=== PATIENT | male | born 1980 | race Caucasian/White ===

== ENCOUNTER 2016-06-30 19:35 | Inpatient (IN) ==
[2016-06-30] MEDS ORDERED: TORADOL IM ONE (20:46)
--- NOTE | 2016-06-30 21:29 | PROVIDER DOCUMENTATION ---
HPI-Musculoskeletal Pain/Inj - GENERAL Source: patient - HX OF PRESENT ILLNESS-MUSKULOSKELTAL Quality of Pain: reports: aching, dull Severity in ED: moderate Onset/Duration: gradual, this morning Timing: still present, constant, getting worse Modifying Factors: improves with: nothing Any recent injury?: No Locality of Occurance: Home Similar Symptoms Previously?: Yes Recently seen or treated by another doctor?: No <Jonny Rothman - Last Filed: 06/30/16 23:13> <Roselia Carroll - Last Filed: 06/30/16 23:53> - GENERAL Chief Complaint: Extremity Pain Stated Complaint: POSS BLOOD CLOT Time Seen by Provider: 06/30/16 20:29 - HX OF PRESENT ILLNESS-MUSKULOSKELTAL Nature of Presenting Problem: 36 year old WM presents with c/o right lower extremity pain/swelling and shortness of breath. pain started this AM followed by swelling, getting worse. pt reports the dull pain starts at his Achilles tendon and radiates up onto the popliteal region. exacerbated by movement/palpation. has not taken any OTC meds for pain relief. pt reports history of this pain with previous DVT diagnosis. pt has a history of DVT in 2004, 2010. denies trauma, injury, fever, chills, NVD (Jonny Rothman) Review of Systems - Adult - REVIEW OF SYSTEMS - ADULT Constitutional: reports: no symptoms reported. denies: chills, fever, fatique Eyes: reports: no symptoms reported. denies: discharge, blurred vision, double vision Ears, Nose, Mouth & Throat: reports: no symptoms reported. denies: ear discharge, ear pain, nose pain, loose teeth, throat pain, throat swelling Cardiovascular: reports: no symptoms reported. denies: chest pain, palpitations , syncope Respiratory: reports: no symptoms reported. denies: chronic cough, cough, shortness of breath, wheezing Gastrointestinal: reports: no symptoms reported. denies: abdominal pain, nausea , vomiting Genitourinary: reports: no symptoms reported. denies: dysuria, hematuria, urgency Musculoskeletal: reports: see HPI, bone pain, joint pain, joint swelling. denies: back pain, frequent leg cramps, muscle aches, muscle weakness Integumentary: reports: no symptoms reported. denies: hives, itching, rash, skin sores/ulcer Neurological: reports: no symptoms reported. denies: ataxia, dizziness/vertigo , numbness, paresthesia Psychiatric: reports: no symptoms reported Endocrine: reports: no symptoms reported Hematologic/Lymphatic: reports: no symptoms reported Allergic/Immunologic: reports: no symptoms reported All Other Systems: Reviewed and Negative <Jonny Rothman - Last Filed: 06/30/16 23:13> Past History - Adult - PAST MEDICAL HISTORY-ADULT Review of Records: reports: Old Records Reviewed, Nursing Assessment Review, Medications Reviewed, Social history reviewed & non-contributory. Major Childhood Illnesses: reports: denies history Cardiovascular: reports: denies history Respiratory: reports: denies history Gastrointestinal: reports: denies history Obstetrical/Gynecological: reports: denies history Genitourinary: reports: denies history Musculoskeletal: reports: denies history, other (DVT in 2004, 2010) Neurological: reports: denies history Endocrine/Immune: reports: denies history Other Conditions: reports: denies history - PRIOR SURGERIES/PROCEDURES Surgical/Procedure History: reports: hernia repair, other (knee) - IMMUNIZATION STATUS Childhood Immunizations: See Nurse Assessment Flu Vaccine: See Nurse Assessment - FAMILY HISTORY Family History: reviewed, not pertinent - SOCIAL HISTORY Smoking: cigarettes Provider spent 3-5 mins advising pt. on dangers of tobacco.: Discussed manners to quit use, and f/u contacts for add'l counseling. Substance Use: none/never Alcohol Use Frequency: never <Jonny Rothman - Last Filed: 06/30/16 23:13> Physical Exam-Injury Related - Physical Exam-Injury Related Initial Vital Signs Reviewed: Yes General Appearance: appears well, alert, mild distress, moderate distress. negative: no apparent distress, severe distress Eyes: pink conjunctivae Head, Ears, Nose, Mouth & Throat: normocephalic/atraumatic, moist mucous membranes, normal ENT inspection Neck: non-tender, full range of motion, supple, normal inspection Respiratory: chest non-tender, lungs clear, normal breath sounds, no pleuratic chest pain, no respiratory distress, no accessory muscle use <Jonny Rothman - Last Filed: 06/30/16 23:13> Progress - CT/MRI 1 CT Study: Angiogram, Thorax Impression: Abnormal (multiple Pe's per Dr. Perez who took call from Dr. Lopez. ) - CONSULTS/PCP/HOSPITALIST Notification #1 *Consult/PCP/Hospitalist*: Dr. Marroquin Time Discussed: 23:16 Consult Disposition: Will see in ED, Admit <Jonny Rothman - Last Filed: 06/30/16 23:13> - EKG 1 Time of EKG reading by physician:: 22:33 EKG Read and Signed by:: Michael Perez EKG Interpretation (*Must complete 3 of following elements*): Normal Rate: 73 Rhythm: NSR with sinus arrhythmia Comments: Normal ECG <Roselia Carroll - Last Filed: 06/30/16 23:53> - PLAN OF CARE/RESULTS Progress/Plan/Lab Results: Laboratory Tests 06/30/16 06/30/16 06/30/16 20:35 20:35 20:35 WBC 13.13 H RBC 5.30 Hgb 16.0 Hct 45.9 MCV 86.6 MCH 30.2 MCHC 34.9 RDW Std Deviation 12.7 Plt Count 219 MPV 11.1 H Immature Gran % (Auto) 0.3 Neut % (Auto) 63.6 Lymph % (Auto) 26.7 Mcminn % (Auto) 6.9 Eos % (Auto) 2.1 Baso % (Auto) 0.4 Immature Gran # (Auto) 0.04 Neut # (Auto) 8.34 H Lymph # (Auto) 3.51 H Mcminn # (Auto) 0.91 H Eos # (Auto) 0.28 Baso # (Auto) 0.05 PT INR APTT (Factor Assay) D-Dimer 3.84 H Sodium 137 Potassium 3.9 Chloride 100 Carbon Dioxide 26 Anion Gap 12 BUN 8 Creatinine 0.9 Estimated GFR/1.73 m2 > 60 BUN/Creatinine Ratio 9 Glucose 105 H Calculated Osmolality 273 Calcium 9.7 Total Bilirubin 0.40 AST 19 ALT 30 Alkaline Phosphatase 116 Total Protein 7.7 Albumin 4.8 Globulin 3.0 Albumin/Globulin Ratio 2.0 06/30/16 20:35 WBC RBC Hgb Hct MCV MCH MCHC RDW Std Deviation Plt Count MPV Immature Gran % (Auto) Neut % (Auto) Lymph % (Auto) Mcminn % (Auto) Eos % (Auto) Baso % (Auto) Immature Gran # (Auto) Neut # (Auto) Lymph # (Auto) Mcminn # (Auto) Eos # (Auto) Baso # (Auto) PT 13.6 INR 1.01 APTT (Factor Assay) 31.3 D-Dimer Sodium Potassium Chloride Carbon Dioxide Anion Gap BUN Creatinine Estimated GFR/1.73 m2 BUN/Creatinine Ratio Glucose Calculated Osmolality Calcium Total Bilirubin AST ALT Alkaline Phosphatase Total Protein Albumin Globulin Albumin/Globulin Ratio Orders Category Date Time Status Saline Loc NOW Care 06/30/16 21:49 Active CTA [ANGIOGRAM/PULMONARY ARTERIES] [CT] Stat Exams 06/30/16 21:50 Taken CBC WITH ELECTRONIC DIFF [HEME] Stat Lab 06/30/16 20:35 Completed COMPREHENSIVE METABOLIC PANEL [CHEM] Stat Lab 06/30/16 20:35 Completed Ddimer [D-DIMER PL] [COAG] Stat Lab 06/30/16 20:35 Completed [address]IME WITH INR PL [COAG] Stat Lab 06/30/16 20:[address] [COAG] Stat Lab 06/30/16 20:35 Completed Ketorolac [Toradol] Med 06/30/16 20:46 Discontinued 60 mg IM NOW ONE EKG [EKG] Stat Ther 06/30/16 21:49 Draft Vital Signs - 24 hr 06/30/16 06/30/16 20:02 23:14 Temperature 98 F 98.8 F Pulse Rate 102 H 79 Respiratory 18 20 Rate Blood Pressure 145/80 107/69 O2 Sat by Pulse 99 96 Oximetry Reviewed radiology, labs, H&P with Dr. Perez, agrees with plan of care and admission. (Jonny Rothman) Departure - Departure Time of Disposition Order: 23:14 Certified Medical Emergency: Emergent <Jonny Rothman - Last Filed: 06/30/16 23:13> <Roselia Carroll - Last Filed: 06/30/16 23:53> - Departure DIAGNOSIS: Pulmonary embolus Qualifiers: Pulmonary embolism type: other Chronicity: acute Acute cor pulmonale presence: without acute cor pulmonale Qualified Code(s): I26.99 - Other pulmonary embolism without acute cor pulmonale Disposition: ADMITTED INPATIENT 09 Condition: Stable Referrals: None,PCP [Primary Care Provider] - Attestation - Physician/ SAUL Attestation Patient care was provided by Advanced Practice Provider:: Yes Advanced Practice Provider:: Jonny Rothman Advanced Practice Provider documentation review:: The Mid-level provider documentation, treatment plan and medical decision making was reviewed by the physician who agrees with all treatment and medical decision making by the MLP. <Jonny Rothman - Last Filed: 06/30/16 23:13> Physician Attestation
[2016-06-30 22:03] LABS: MANUAL DIFF NEEDED? NO
[2016-06-30 22:09] LABS: BASO% 0.4 % (0.0-0.8); EOS# 0.28 X1000 (0.0-0.7); EOS% 2.1 % (0.0-10.0); HEMATOCRIT 45.9 % (42.0-52.0); IMM GRAN# 0.04 X1000 (0.0-0.04); IMM GRAN% 0.3 % (0.0-0.5); LYMPH# 3.51 X1000 (1.2-3.4); LYMPH% 26.7 % (20.5-51.1); MCH 30.2 PG (27-31); MCHC 34.9 g/dL (33-37); MCV 86.6 FL (81-99); MONO# 0.91 X1000 (0.11-0.59); MONO% 6.9 % (1.7-9.3); MPV 11.1 FL (7.4-10.4); NEUT% 63.6 % (42.2-75.2); PLT 219 X1000 (130-400)
[2016-06-30 22:26] LABS: INR 1.01 (0.86-1.15); PROTIME 13.6 Seconds (12.1-15.5)
[2016-06-30 22:27] LABS: PTT PL 31.3 Seconds (22.6-43.9)
[2016-06-30 22:31] LABS: AGAP 12; ALBUMIN 4.8 g/dL (3.5-5.0); ALKALINE PHOSPHATASE 116 U/L (32-122); BUN 8 mg/dL (8-22); CALCIUM 9.7 mg/dL (8.8-10.2); CHLORIDE 100 mmol/L (98-107); COSMO 273; GOT 19 U/L (10-34); GPT 30 U/L (10-44); POTASSIUM 3.9 mmol/L (3.5-5.1); SODIUM 137 mmol/L (136-145); TCO2 26 mmol/L (25-35); TOTAL PROTEIN 7.7 g/dL (6.3-8.3)
--- NOTE | 2016-06-30 22:40 | EKG Report ---
Test Performed on : 06/30/2016 10:33:52 PM Test Reason : shortness of breath Blood Pressure : / mmHG Vent. Rate : 073 BPM Atrial Rate : 073 BPM P-R Int : 146 ms QRS Dur : 078 ms QT Int : 386 ms P-R-T Axes : 038 006 037 degrees QTc Int : 425 ms Normal sinus rhythm. with sinus arrhythmia. Normal ECG When compared with ECG of 13-MAY-2011 20:31, No significant change was found Unconfirmed Result
[2016-06-30] MEDS ORDERED: LOVENOX SUBQ ONE (23:19)
[2016-07-01] MEDS ORDERED: FLUZONE QUAD 2016-2017 SYRINGE IM ONE (00:32)
[2016-07-01] MEDS ORDERED: NICODERM PATCH TD PRN (00:45)
[2016-07-01] MEDS ORDERED: NORCO-7.5 PO PRN (00:45)
[2016-07-01] MEDS ORDERED: ZOFRAN IV PRN (00:45)
[2016-07-01] MEDS ORDERED: TYLENOL PO PRN (00:45)
--- NOTE | 2016-07-01 05:19 | HISTORY AND PHYSICAL ---
CHIEF COMPLAINT: Really right lower extremity swelling but he has had some chest pain and shortness of breath as well. HISTORY OF PRESENT ILLNESS: Briefly, this is a 36-year-old male who has had 2 previous evidence of DVT and PE. He came in for evaluation today of his right lower extremity that has been going on for several days. He reports 1 clot in 2004. He had another episode he says about 5 or 6 years ago, that would be around 2011. The patient had pain and swelling in his right lower extremity and he was admitted for treatment. Workup in the ER revealed multiple PEs bilaterally and he was admitted for treatment. The patient denies any significant history previously. PAST SURGICAL HISTORY: Denies. PAST MEDICAL HISTORY: Again, DVT, PE. FAMILY HISTORY: Negative for DVT, PE. His father is but of an MVA. SOCIAL HISTORY: He does smoke about a pack a day. He has done that for over 10 years. No ethanol. No drugs. REVIEW OF SYSTEMS: Otherwise negative of a 10 point review of systems. LABORATORY DATA: Really unremarkable. Again, preliminary report on CTA shows bilateral PEs. PHYSICAL EXAMINATION: VITAL SIGNS: Blood pressure 107/69, heart rate is 79, respiratory rate 20, temperature 98.8 degrees. GENERAL: A well-developed male, in no acute distress. HEAD EXAM: Normocephalic, atraumatic. EYES: Pupils equal, round, reactive to light. Extraocular movements were intact. EARS/NOSE/THROAT: He had moist mucous membranes. NECK: Supple. CARDIOVASCULAR: Regular rate and rhythm. No murmurs, gallops, or rubs. PULMONARY: Bilateral breath sounds clear to auscultation. GI: Soft, nontender, nondistended. Bowel sounds are positive. EXTREMITIES: No clubbing or cyanosis. LYMPHATICS: No peripheral edema. He had nonpitting edema of his right lower extremity with some petechiae and erythema and tenderness. Positive Homans sign. MUSCULOSKELETAL: Was 5/5 in all 4 extremities. NEUROLOGIC: Nonfocal. Cranial nerves 2-12 were grossly intact. ASSESSMENT: A 36-year-old, white male with history of deep venous thrombosis x2 episodes and now recurrent pulmonary embolism and likely a right lower extremity deep venous thrombosis. 1. Pulmonary embolism. We will continue anticoagulation. He has been started on Lovenox. We will continue to follow very closely. He will, at this point I think, need lifetime anticoagulation. I have ordered the anti-hypercoagulable workup, a thrombophilia workup but regardless, if it is negative, this many episodes in a row, he is just going to have to have that set up. 2. Right lower extremity swelling, likely deep venous thrombosis. We will treat as described previously.
[2016-07-01] MEDS: PRILOSEC PO SCH (06:01)
[2016-07-01 06:54] LABS: HEMATOCRIT 42.1 % (42.0-52.0); HEMOGLOBIN 14.6 g/dL (14.0-18.0); MCHC 34.7 g/dL (33-37); MCV 86.6 FL (81-99); MPV 10.9 FL (7.4-10.4); RBC 4.86 XMIL (4.7-6.1)
[2016-07-01 07:08] LABS: AGAP 10; BUN 11 mg/dL (8-22); CALCIUM 9.1 mg/dL (8.8-10.2); CHLORIDE 102 mmol/L (98-107); COSMO 270; POTASSIUM 3.8 mmol/L (3.5-5.1); SODIUM 135 mmol/L (136-145); TCO2 23 mmol/L (25-35)
--- NOTE | 2016-07-01 08:21 | Diag Imaging Result Document ---
PROCEDURE NAME: ANGIOGRAM/PULMONARY ARTERIES - 06/30/2016 CT PULMONARY ANGIOGRAM WITH INTRAVENOUS CONTRAST: A CT dose reduction protocol was used. COMPARISON: None. FINDINGS: Axial CT images of the chest were obtained after administering intravenous contrast. Coronal MIP images were generated. There are numerous bilateral acute appearing pulmonary emboli, mostly on the right. The lungs are clear. Heart size is normal. Upper abdominal images are unremarkable. IMPRESSION: Numerous acute bilateral pulmonary emboli. [facility]
--- NOTE | 2016-07-01 09:35 | PROGRESS NOTE ---
DATE: 07/01/2016 SUBJECTIVE: Patient without new complaints. OBJECTIVE: Vital Signs: Temp 97, pulse 78, respiratory 18, BP 117/63, satting 100% on room air. General: Patient is well developed, well nourished. Currently in no real respiratory distress. He is awake, alert. Neck: Supple. CV: Regular rate. Chest: Relatively clear. Abdomen: Soft. Extremities: Moves all extremities. Neurologic: No changes. ASSESSMENT: 1. Numerous acute bilateral pulmonary emboli. 2. Right lower extremity swelling; ultrasound still pending. PLAN: Patient unfortunately has no insurance, therefore we will start him on Coumadin. We will ask geriatric social worker for assistance as there may be a [employer] assistance program that he could qualify for. We will continue to follow. If he does not qualify for any assistance, then he will be here until his INR is greater than 2.
[2016-07-01] MEDS: NORCO-7.5 PO PRN ×3 (10:04→20:47)
[2016-07-01] MEDS: LOVENOX SUBQ SCH ×2 (10:56→23:30)
[2016-07-01] MEDS: COUMADIN PO SCH (20:47)
[2016-07-02] MEDS: NORCO-7.5 PO PRN ×5 (04:39→21:29)
[2016-07-02] MEDS: PRILOSEC PO SCH (06:19)
--- NOTE | 2016-07-02 08:55 | PROGRESS NOTE ---
DATE: 07/02/2016 SUBJECTIVE: Patient is feeling better. He denies any current chest pain or palpitations. Does state he is still short of breath at times but denies any fevers chills. OBJECTIVE: Vital Signs: Reviewed. Temperature 98 degrees, pulse 84, respiratory 18, BP 117/64, saturating 98% on room air. General: Patient is well developed, well nourished. Currently in no real respiratory distress. He is awake, alert, oriented. Neck: Supple. CV: Regular rate. Chest: Relatively clear. Abdomen: Soft. Extremities: Moves all extremities. Neurologic: No changes. Skin: Warm and dry. No rashes. ASSESSMENT: 1. Bilateral pulmonary emboli in a patient with a known history of multiple emboli as well as deep vein thromboses in the past. 2. Right lower extremity swelling. I do not have a final dictated copy of his ultrasound. PLAN: Discussed with patient that he needs to be on anticoagulation likely for life. His homocystine is elevated which certainly could increase his risk of clotting, as would he is smoking. Given his previous multiple clotting history, patient certainly will need to be on anticoagulation. We will continue him on Coumadin. Continue to follow his INR. We have filled out assistance papers for Stacy which certainly would be in his best interest as he does not have insurance and would have difficulty getting his INRs checked. We will continue to follow.
[2016-07-02] MEDS: NICODERM PATCH TD SCH (09:07)
[2016-07-02] MEDS: LOVENOX SUBQ SCH (10:32)
[2016-07-02] MEDS ORDERED: RESTORIL PO PRN (17:30)
[2016-07-02] MEDS: COUMADIN PO SCH (21:22)
[2016-07-03] MEDS: LOVENOX SUBQ SCH ×2 (00:28→10:37)
[2016-07-03] MEDS: NORCO-7.5 PO PRN ×4 (04:43→18:18)
[2016-07-03] MEDS: PRILOSEC PO SCH (06:43)
--- NOTE | 2016-07-03 07:12 | Extremity Venous Study ---
PROCEDURE NAME: Venous U/S Right Leg - 07/01/2016 UNILATERAL RIGHT LOWER EXTREMITY VENOUS DOPPLER ULTRASOUND: COMPARISON: None. FINDINGS: There is extensive deep venous thrombosis, in the mid-distal superficial femoral vein, popliteal vein, posterior tibial and peroneal veins as well as the gastrocnemius and soleus veins. There is also superficial venous thrombosis of the lesser saphenous vein. IMPRESSION: Extensive venous thrombosis of the right lower extremity. The left lower extremity was not requested for imaging.
[2016-07-03 07:16] LABS: INR 1.32 (0.86-1.15); PROTIME 16.7 Seconds (12.1-15.5)
--- NOTE | 2016-07-03 08:40 | PROGRESS NOTE ---
DATE: 07/03/2016 SUBJECTIVE: Patient without any new complaints. Notes that he is not sleeping well, but other than that states he feels generally okay. OBJECTIVE: Vital Signs: Reviewed. Temperature 98 degrees, pulse 82, respiratory rate 20, and BP 127/83. General: Patient is well developed, well nourished. Currently in no real respiratory distress. He is awake, alert, oriented. Neck: Supple. CV: Regular rate. Chest: Relatively clear. There are no focal changes. Neurologic: The patient is awake alert, oriented. He is pleasant to talk with. ASSESSMENT: 1. Extensive venous thrombosis of the right lower extremity. 2. Bilateral pulmonary emboli. PLAN: The patient currently is on Coumadin. His INR is low. We will increase from 10 mg to 15 mg. We will continue to plan on patient discharging home on Coumadin. We have filled out paperwork for assistance for Stacy; hopefully this will be available prior to discharge. We will continue to follow.
[2016-07-03] MEDS: NICODERM PATCH TD SCH (09:26)
[2016-07-03 15:54] VITALS: BP 126/68
[2016-07-03] MEDS ORDERED: XARELTO PO SCH (17:00)
[2016-07-03] MEDS ORDERED: COUMADIN PO SCH (21:00)
--- NOTE | 2016-07-04 12:18 | DISCHARGE SUMMARY ---
ADMISSION DATE: 06/30/2016 DISCHARGE DATE: 07/03/2016 DIAGNOSES: 1. Pulmonary embolism. 2. Extensive deep venous thrombosis of the right lower extremity. DIAGNOSTICS: 1. 06/30/2016, pulmonary arteriogram reveals numerous acute bilateral pulmonary emboli. 2. 07/01/2016, right lower extremity venous Doppler ultrasound reveals extensive venous thrombosis of the right lower extremity in the mid distal superficial vein, popliteal vein, posterior tibial and per on heel veins as well gastrocnemius and soleus veins. There is also superficial venous thrombosis of the lesser saphenous vein. HOSPITAL COURSE: Mr. Blanton presented to the emergency room with right lower extremity edema as well as chest pain, shortness of breath. He was found to have extensive bilateral pulmonary emboli as an extensive right lower extremity DVT. He has a history of each. He was started on Lovenox 1 mg/kg as well as warfarin as he does not have insurance. While he was being anticoagulated, we were able to get assistance for his Xarelto which he will be able to get free. He did receive b.i.d. Xarelto as well as warfarin. These will be stopped. We will give him a dose of throughout Xarelto this afternoon and then discharge him a few hours later making sure he tolerates the medicine is. It has been discussed with the patient by myself as well as Dr. Price the importance of him being compliant in taking his anticoagulation due to his prior history as well as the extent of DVT. It has been explained him that he will need to be on anticoagulation for life. He has also been explained due to his homocysteine level being elevated he will have an increased risk of clotting as well as his smoking. He does voice understanding of this. As stated above we did obtain approval. He does voice understanding. The patient has no insurance. We will give him the number to call for our system to help him find a PCP as well as the [facility]'s phone number and [facility]. He will be given a prescription for the 15 mg for 21 days with no refills. A separate prescription for 20 mg daily that he starts after completing the 15 mg prescription. On this one, he will have 3 refills. This will give him 3 months, ample time to find a PCP. This has been explained him and he does voice understanding. DISCHARGE PHYSICAL ASSESSMENT: Cardiovascular: Regular rate and rhythm. S1 and S2 are appreciated. Pulmonary: Breath sounds are clear. No increased work of breathing noted. Gastrointestinal: Abdomen is soft, nontender, nondistended, with bowel sounds in all 4 quadrants. Extremities: No clubbing, cyanosis, or edema. Calves nontender. Pulses are palpable x4. DISCHARGED DIET: Healthy heart. DISCHARGE MEDICATIONS: 1. Xarelto 15 mg 1 p.o. b.i.d. for 21 days 2. Xarelto 20 mg daily with supper to be started on date 22 after completion of the 15 mg prescription. DISPOSITION: He is being discharged home in stable condition with family members. TIME SPENT: This is a greater than 30-minute discharge from 3:00 to 3:33. Dictated by JENNIFER Saucedo for Naveed Price MD
--- NOTE | 2016-07-04 21:21 | DISCHARGE SUMMARY ---
ADMISSION DATE: 06/30/2016 DISCHARGE DATE: 07/03/2016 DISCHARGE DIAGNOSES: 1. Pulmonary emboli. 2. Right lower extremity deep vein thrombosis. 3. Factor V heterozygous positive. 4. Chronic tobacco abuse. CONSULTATIONS: None. PROCEDURES: None. BRIEF HOSPITAL COURSE: Patient is a 36-year-old male who was admitted as noted on the HPI, treated in the usual fashion. He was initially placed on Coumadin as he has no insurance. Thankfully he qualified for Xarelto patient assistance. DISPOSITION: Forty minutes was spent in discharge planning and instructions. I discussed with Mr. Blanton the perils of smoking, i.e. increased blood clots, sudden , etc. I also discussed with him that he has to take Xarelto or some form of anticoagulation lifelong given his Factor V heterozygous state as well as his multiple PEs and DVTs in the past. Patient states he understands and is willing to comply. He will follow up with [facility] unless he chooses to follow up somewhere else. Appointment has been made.
== END 2016-07-03 18:33 | disposition home or self-care (01) | DRG 176 ==
LOC: P.ED 19:35 → P.MEDSURG 23:45
PROVIDERS: ATTEND Family Medicine
DX: I26.99 Other pulmonary embolism without acute cor pulmonale (principal); D68.1 Hereditary factor XI deficiency; I82.411 Acute embolism and thrombosis of right femoral vein; I82.431 Acute embolism and thrombosis of right popliteal vein; I82.441 Acute embolism and thrombosis of right tibial vein; I82.491 Acute embolism and thrombosis of other specified deep vein of right lower extremity; F17.210 Nicotine dependence, cigarettes, uncomplicated; Z86.718 Personal history of other venous thrombosis and embolism; Z86.711 Personal history of pulmonary embolism; Z23 Encounter for immunization
CPT/HCPCS: 36415; 71275; 80048; 80053; 81240; 81241; 83090; 84484; 85025; 85027; 85301; 85302; 85306; 85379; 85610; 85612; 85613; 85730; 86147; 93005; 93971; 96372; J1650; J1885; Q2038; Q9967